=== PATIENT | male | born 1960 | race African-American/Black ===

== ENCOUNTER 2017-05-27 12:15 | Observation (INO) | payer OTHER ==
[~2017-05-27] VITALS: Ht 190.5 cm; Wt 148.2 kg
[2017-05-27 13:29] LABS: APPEARANCE CLEAR ((CLEAR)); BILIRUBIN NEGATIVE; BLOOD SMALL; COLOR STRAW ((YELLOW)); GLUCOSE (STRIP) NEGATIVE; KETONES NEGATIVE; LEUKOCYTES NEGATIVE; NITRITE NEGATIVE; PROTEIN (STRIP) 30; SPECIFIC GRAVITY 1.006 (1.000-1.030); UROBILINOGEN 0.2 MG/DL (0.2-1.0)
[2017-05-27 13:42] LABS: BASOPHIL (%) 0.5 % (0-1); EOSINOPHIL (%) 2.2 % (0-5); EOSINOPHIL COUNT 0.1 K/uL (0-0.3); HEMATOCRIT 42.7 % (38.0-50.0); HEMOGLOBIN 14.1 G/DL (12.5-16.6); IMMATURE GRANULOCYTE (%) 0.5 % (0.0-0.7); LYMPHOCYTE (%) 23.7 % (15-42); LYMPHOCYTE COUNT 1.3 K/uL (1.0-2.8); MCH 33.5 PG (29.0-34.0); MCV 101.4 FL (86-99); MONOCYTE (%) 5.8 % (3-12); MONOCYTE COUNT 0.3 K/uL (0-0.8); NEUTROPHIL (%) 67.3 % (45-76); NEUTROPHIL COUNT 3.7 K/uL (1.8-6.4); PLATELET COUNT 198 K/uL (156-360); RBC DIS.WIDTH-SD 48.3 % (39-53); RED BLOOD COUNT 4.21 M/uL (4.00-5.50); WHITE BLOOD COUNT 5.5 K/uL (4.1-10.2)
[2017-05-27 13:43] LABS: BACTERIA NONE SEEN /HPF; EPITHELIAL CELLS RARE /HPF; MUCUS NONE SEEN /LPF; UCUL ADDED? NO; WHITE BLOOD CELLS 0-5 /HPF (0-5)
[2017-05-27 13:52] LABS: ALBUMIN 4.2 g/dL (3.2-4.8); CHLORIDE 105 mEq/L (99-109); POTASSIUM 3.6 mEq/L (3.7-5.4); SODIUM 140 mEq/L (136-147)
[2017-05-27 13:54] LABS: GLUCOSE 92 mg/dL (70-99); TOTAL PROTEIN 7.7 g/dL (6.4-8.3)
[2017-05-27 13:56] LABS: TOTAL BILIRUBIN 1.2 mg/dL (0.0-1.0)
[2017-05-27 13:58] LABS: ALKALINE PHOSPHATASE 54 IU/L (3-129); CREATININE 1.2 mg/dL (0.6-1.3); GFR ESTIMATE (CALCULATED) > 59 mL/min/ (58.99-99999)
[2017-05-27 13:59] LABS: UREA NITROGEN (BUN) 8 mg/dL (9-23)
[2017-05-27 14:00] LABS: AST (GOT) 28 IU/L (2-34)
[2017-05-27 14:01] LABS: ALT (GPT) 21 IU/L (3-49); LIPASE 20 U/L (1.0-51.0)
[2017-05-27 14:04] LABS: TROP-I INTERPRETATION NEGATIVE; TROPONIN-I 0.03 ng/mL (0.0-0.30)
[2017-05-27 14:51] LABS: AMPHETAMINE NEGATIVE (500 ng/mL); BARBITURATES NEGATIVE (200 ng/mL); BENZODIAZEPINES NEGATIVE (150 ng/mL); BUPRENORPHINE NEGATIVE (10 ng/mL); COCAINE NEGATIVE (150 ng/mL); METHADONE NEGATIVE (200 ng/mL); METHAMPHETAMINE NEGATIVE (500 ng/mL); OPIATES (MORPHINE) NEGATIVE (100 ng/mL); OXYCODONE NEGATIVE (100 ng/mL); PHENCYCLIDINE NEGATIVE (25 ng/mL); PROPOXYPHENE NEGATIVE (300 ng/mL); THC CANNABINOIDS NEGATIVE (50 ng/mL); TRICYCLIC ANTIDEPRESSANTS NEGATIVE (300 ng/mL)
[2017-05-27 16:35] LABS: SERUM ETHYL ALCOHOL < 10 mg/dL
[2017-05-27] MEDS ORDERED: HYDRALAZINE HCL50 MG PO (16:38)
[2017-05-27] MEDS ORDERED: CARVEDILOL25 MG PO (16:38)
[2017-05-27] MEDS ORDERED: PLAVIX75 MG PO (16:38)
[2017-05-27] MEDS ORDERED: FAMOTIDINE20 MG PO (16:39)
[2017-05-27] MEDS ORDERED: ASPIR 8181 M1 PO (16:39)
[2017-05-27] MEDS ORDERED: AMLODIPINE BESY10 MG PO (16:40)
[2017-05-27] MEDS ORDERED: OXYBUTYNIN CHLOR5 MG PO (16:40)
[2017-05-27] MEDS ORDERED: NEURONTIN300 MG PO (16:40)
[2017-05-27] MEDS ORDERED: ATORVASTATIN CA80 MG PO (16:41)
[2017-05-27] MEDS ORDERED: DOXEPIN HCL10 MG PO (16:41)
[2017-05-27] MEDS ORDERED: FUROSEMIDE20 MG PO (16:42)
[2017-05-27] MEDS ORDERED: CITALOPRAM HBR40 MG PO (16:42)
[2017-05-27] MEDS ORDERED: CLONAZEPAM1 MG PO (16:43)
[2017-05-27] MEDS ORDERED: IMDUR60 MG PO (16:43)
[2017-05-27] MEDS ORDERED: FIBER TABS625 MG PO (16:44)
[2017-05-27] MEDS ORDERED: LISINOPRIL40 MG PO (16:45)
[2017-05-27 18:37] LABS: TROP-I INTERPRETATION NEGATIVE; TROPONIN-I 0.03 ng/mL (0.0-0.30)
[2017-05-27 19:50] LABS: HEMATOCRIT 44.2 % (38.0-50.0); HEMOGLOBIN 14.4 G/DL (12.5-16.6); MCH 32.7 PG (29.0-34.0); MCHC 32.6 G/DL (30.0-36.0); MCV 100.2 FL (86-99); PLATELET COUNT 199 K/uL (156-360); RBC DIS.WIDTH-CV 12.8 % (11.8-14.6); RBC DIS.WIDTH-SD 47.7 % (39-53); RED BLOOD COUNT 4.41 M/uL (4.00-5.50); WHITE BLOOD COUNT 5.5 K/uL (4.1-10.2)
[2017-05-27 19:53] LABS: INTER. NORMALIZED RATIO 1.1
[2017-05-27 19:56] LABS: PTT 34.9 SEC (25-37)
[2017-05-27 20:00] LABS: CHLORIDE 101 MEQ/L (99-109); POTASSIUM 3.6 MEQ/L (3.7-5.4); SODIUM 137 MEQ/L (136-147)
[2017-05-27 20:08] LABS: TROP-I INTERPRETATION NEGATIVE; TROPONIN-I 0.03 ng/mL (0.0-0.30)
[2017-05-27 20:15] LABS: FOLIC ACID (FOLATE) 6.9 NG/ML (5.0-22.0)
[2017-05-27 20:18] LABS: GFR ESTIMATE (CALCULATED) > 59 mL/min/ (58.99-99999); GLUCOSE 83 mg/dL (70-99); HDL CHOLESTEROL 51 MG/DL (Desirable>=40); LDL CHOLESTEROL 129 mg/dL (Desirable<100); NON-HDL CHOLESTEROL 151 mg/dL (Desirable<160); SERUM ETHYL ALCOHOL < 10 mg/dL; TOTAL CHOLESTEROL 202 mg/dL (Desirable<200); TRIGLYCERIDES 108 MG/DL (Normal: <150); UREA NITROGEN (BUN) 7 mg/dL (9-23)
[2017-05-27 20:21] VITALS: BP 139/91
[2017-05-27 23:55] VITALS: BP 141/66
[2017-05-28 01:00] LABS: TROP-I INTERPRETATION NEGATIVE; TROPONIN-I 0.04 ng/mL (0.0-0.30)
[2017-05-28 04:07] VITALS: BP 143/74
[2017-05-28 04:39] LABS: BENZODIAZEPINES, URINE SCREEN Negative (200 ng/mL)
[2017-05-28 07:26] LABS: Estimated Average Glucose 105 mg/dL (70-123); HEMOGLOBIN A1c (GLYCOHEMOGLOB) 5.3 % HGB (Below 5.7)
[2017-05-28 07:39] VITALS: BP 137/90
[2017-05-28 08:14] LABS: HEMOGLOBIN 14.3 G/DL (12.5-16.6); MCH 32.9 PG (29.0-34.0); MCHC 33.3 G/DL (30.0-36.0); MCV 99.1 FL (86-99); PLATELET COUNT 211 K/uL (156-360); RBC DIS.WIDTH-CV 12.6 % (11.8-14.6); RBC DIS.WIDTH-SD 46.1 % (39-53); RED BLOOD COUNT 4.34 M/uL (4.00-5.50); WHITE BLOOD COUNT 5.8 K/uL (4.1-10.2)
[2017-05-28 08:39] LABS: CHLORIDE 102 MEQ/L (99-109); CREATININE 0.9 MG/DL (0.6-1.3); GFR ESTIMATE (CALCULATED) > 59 mL/min/ (58.99-99999); GLUCOSE 88 mg/dL (70-99); POTASSIUM 3.3 MEQ/L (3.7-5.4); SODIUM 138 MEQ/L (136-147); UREA NITROGEN (BUN) 7 mg/dL (9-23)
[2017-05-28 12:24] VITALS: BP 130/77
[2017-05-28 16:00] VITALS: BP 123/78
[2017-05-28 19:57] VITALS: BP 124/77
[2017-05-29] VITALS: BP 144/92
[2017-05-29 04:00] VITALS: BP 135/83
[2017-05-29 07:30] LABS: BASOPHIL (%) 0.7 % (0-1); EOSINOPHIL (%) 1.9 % (0-5); EOSINOPHIL COUNT 0.1 K/uL (0-0.3); HEMATOCRIT 40.4 % (38.0-50.0); HEMOGLOBIN 13.5 G/DL (12.5-16.6); IMMATURE GRANULOCYTE (%) 0.2 % (0.0-0.7); LYMPHOCYTE (%) 29.7 % (15-42); LYMPHOCYTE COUNT 1.7 K/uL (1.0-2.8); MCH 33.7 PG (29.0-34.0); MCHC 33.4 G/DL (30.0-36.0); MCV 100.7 FL (86-99); MONOCYTE (%) 6.7 % (3-12); MONOCYTE COUNT 0.4 K/uL (0-0.8); NEUTROPHIL (%) 60.8 % (45-76); NEUTROPHIL COUNT 3.5 K/uL (1.8-6.4); PLATELET COUNT 196 K/uL (156-360); RBC DIS.WIDTH-CV 12.7 % (11.8-14.6); RBC DIS.WIDTH-SD 47.8 % (39-53); RED BLOOD COUNT 4.01 M/uL (4.00-5.50); WHITE BLOOD COUNT 5.7 K/uL (4.1-10.2)
[2017-05-29 07:33] VITALS: BP 127/84
[2017-05-29 08:06] LABS: ALBUMIN 3.8 G/DL (3.2-4.8); ALKALINE PHOSPHATASE 41 IU/L (3-129); ALT (GPT) 14 IU/L (3-49); AST (GOT) 20 IU/L (2-34); CHLORIDE 103 MEQ/L (99-109); CREATININE 1.2 MG/DL (0.6-1.3); GFR ESTIMATE (CALCULATED) > 59 mL/min/ (58.99-99999); GLUCOSE 95 mg/dL (70-99); POTASSIUM 3.5 MEQ/L (3.7-5.4); SODIUM 138 MEQ/L (136-147); TOTAL BILIRUBIN 0.6 MG/DL (0.0-1.0); TOTAL PROTEIN 6.3 G/DL (6.4-8.3); UREA NITROGEN (BUN) 12 mg/dL (9-23)
[2017-05-29 09:54] LABS: MAGNESIUM 1.8 mg/dl (1.3-2.7)
[2017-05-29 12:26] VITALS: BP 124/79
[2017-05-29 15:51] VITALS: BP 109/70
[2017-05-29 20:52] VITALS: BP 142/88
[2017-05-30 01:07] VITALS: BP 142/97
[2017-05-30 07:49] VITALS: BP 137/88
[2017-05-30] MEDS ORDERED: CYANOCOBALAM1000 MCG PO (11:59)
[2017-05-30] MEDS ORDERED: FOLIC ACID1 MG PO (11:59)
== END 2017-05-30 16:56 | disposition home or self-care (01) ==
LOC: EME 12:15 → EDOF 15:30 → 5SOUTH 15:30 → 5WEST 15:30 → EDOF 15:30 → ENRESERV 15:32 → 5WEST 17:21 → ENRESERV 19:19 → 5SOUTH 19:26 → ENRESERV 19:26 → 5SOUTH 05-30 16:56
PROVIDERS: Emergency Medicine; Hospitalist; Internal Medicine; Physician Assistant
DX: G45.4 Transient global amnesia (principal); R41.82 Altered mental status, unspecified; R91.1 Solitary pulmonary nodule; I11.0 Hypertensive heart disease with heart failure; I50.9 Heart failure, unspecified; E78.5 Hyperlipidemia, unspecified; R56.9 Unspecified convulsions; I69.320 Aphasia following cerebral infarction; I69.351 Hemiplegia and hemiparesis following cerebral infarction affecting right dominant side; I25.2 Old myocardial infarction; Z60.2 Problems related to living alone; Z79.02 Long term (current) use of antithrombotics/antiplatelets; Z79.82 Long term (current) use of aspirin; Z95.0 Presence of cardiac pacemaker; Z88.5 Allergy status to narcotic agent
CPT/HCPCS: 70450; 70496; 70498; 71250; 80048; 80048 91; 80053; 80061; 80306 90; 81003; 82607; 82746; 83036; 83605; 83690; 83735; 84484; 85025; 85027; 85610; 85730; 87040; 87801; 93005; 93306; 95819; 99281; 99285; G0378; G0480; J1650; J3370; J7030